=== PATIENT | female | born 1990 | race Asian ===

== ENCOUNTER 2018-09-28 16:00 | Emergency (ER) | payer OTHER ==
[~2018-09-28] VITALS: Ht 157.5 cm; Wt 53.1 kg
[2018-09-28 16:23] VITALS: Ht 157.5 cm; Wt 53.1 kg
[2018-09-28 18:22] VITALS: BP 118/95
== END 2018-09-28 18:22 | disposition home or self-care (01) ==
LOC: ED 16:00
DX: S71.111A Laceration without foreign body, right thigh, initial encounter (principal); W26.8XXA Contact with other sharp object(s), not elsewhere classified, initial encounter; Y93.89 Activity, other specified; Y92.89 Other specified places as the place of occurrence of the external cause; Y99.8 Other external cause status
CPT/HCPCS: J2001